=== PATIENT | male | born 1940 | race Caucasian/White ===

== ENCOUNTER 2020-11-08 14:46 | Outpatient (CLI) | payer MEDICARE, BC | END 2020-11-08 14:47 | disposition home or self-care (01) | LOC: CSHCP 14:46 | PROVIDERS: ATTEND Internal Medicine Critical Care Medicine | DX: R06.09 Other forms of dyspnea (principal); R94.2 Abnormal results of pulmonary function studies | CPT/HCPCS: 94060; 94726; 94729; 94760 ==